=== PATIENT | male | born 1985 | race Two or more races ===

== ENCOUNTER 2018-09-25 17:21 | Emergency (ER) | payer SELFPAY ==
[~2018-09-25] VITALS: Ht 182.9 cm; Wt 77.0 kg
[2018-09-25 18:21] VITALS: BP 124/71; PULSE 100; RESP 18; Ht 182.9 cm; Wt 77.0 kg
[2018-09-25] MEDS ORDERED: ACETAMINOPHEN 500 MG TAB PO STA (21:13)
[2018-09-25] MEDS ORDERED: KETOROLAC 60 MG INJ IM STA (21:13)
[2018-09-25] MEDS ORDERED: KETOROLAC 30 MG INJ IV STA (21:17)
[2018-09-25] MEDS ORDERED: ONDANSETRON 4 MG INJ IV STA (21:17)
[2018-09-25] MEDS ORDERED: SOD CHLORIDE 0.9% 1,000 ML IV ONE (21:30)
[2018-09-25] MEDS ORDERED: traMADol 50 MG TAB PO ONE (21:30)
[2018-09-25] MEDS ORDERED: CEFTRIAXONE 1 GM/50 ML (PMX) 50 ML IVPB ONE (21:30)
[2018-09-25] MEDS ORDERED: DIC250 PO (22:29)
[2018-09-25] MEDS ORDERED: morphine 4 MG/ML VIAL IM STA (22:35)
[2018-09-25] MEDS ORDERED: DICL50TA11 PO (22:38)
[2018-09-25] MEDS ORDERED: SULF1TAB31 PO (22:38)
[2018-09-25] MEDS ORDERED: ACET500C5 PO (22:38)
[2018-09-25] MEDS ORDERED: TRIMETHOPRIM/SULFAMETHOX (DS) TAB PO ONE (23:00)
--- NOTE | 2018-09-26 00:29 | ERD ---
ER Documentation Chief Complaint Chief Complaint L elbow pain/swelling X 2 days, no trauma HPI History of Present Illness: 32-year-old male who denies past medical history coming in today with complaint of left elbow pain and swelling is been present for 2 days. Patient denies trauma. Patient reports history of bursitis but reports that his symptoms of intermittent severe with feelings of fatigue and chills and "feverish". 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 At home pharmacological/nonpharmacological treatment for symptoms: Denies Denies social concerns; Denies recent foreign travel ROS All systems reviewed and are negative except as per history of present illness. Medications Home Meds Active Scripts Acetaminophen* (Tylophen*) 500 Mg Capsule, 2 CAP PO Q6 PRN for PAIN AND OR ELEVATED TEMP, #20 CAP Prov:STACY PETER V BATTERY HAND 09/25/18 Diclofenac Sodium* (Diclofenac Sodium*) 50 Mg Tablet.dr, 50 MG PO TID for SWELLING/INFLAMMATION/PAIN, #30 TAB Prov:STACY PETER V BATTERY HAND 09/25/18 Sulfamethoxazole/Trimethoprim* (Bactrim Ds* Tablet) 1 Each Tablet, 1 TAB PO BID for BURSA INFECTION for 14 Days, #28 TAB Prov:STACY PETER V BATTERY HAND 09/25/18 Dicloxacillin Sodium* (Dynapen*) 250 Mg Cap, 500 MG PO QID for INFECTED BURSA for 14 Days, CAP Prov:STACY PETER V BATTERY HAND 09/25/18 Allergies Allergies: Coded Allergies: No Known Allergy (Unverified , 09/25/18) PMhx/Soc Medical and Surgical Hx: pt denies Medical Hx, pt denies Surgical Hx History of Surgery: No Hx Neurological Disorder: No Hx Respiratory Disorders: No Hx Cardiac Disorders: No Hx Psychiatric Problems: No Hx Miscellaneous Medical Probl: No Hx Alcohol Use: Yes (Occasionally) Hx Substance Use: No (Denies) Hx Tobacco Use: No (denies) Smoking Status: Never smoker FmHx Family History: No diabetes, No coronary disease Physical Exam Vitals Vital Signs Date Temp Pulse Resp B/P (MAP) Pulse Ox O2 O2 Flow FiO2 Time Delivery Rate 09/25/18 100.9 100 18 124/71 98 18:21 (88) Physical Exam Const: No acute distress Head: Atraumatic Eyes: Normal Conjunctiva ENT: Normal External Ears, Nose and Mouth. Neck: Full range of motion. No meningismus. Resp: Clear to auscultation bilaterally Cardio: Regular rate and rhythm, no murmurs Abd: Soft, non tender, non distended. Normal bowel sounds Skin: No petechiae or rashes Back: No midline or flank tenderness Ext: No cyanosis; swelling, erythema, warmth noted to left elbow, no fluctuance, positive tenderness to palpation Neur: Awake and alert Psych: Normal Mood and Affect Results 24 hrs Current Medications Medications Dose Sig/Shad Start Time Status Last (Trade) Ordered Route PRN Stop Time Admin Dose Reason Admin Ketorolac 60 mg ONCE STAT 09/25/18 DC Tromethamine IM 21:13 09/25/18 (Toradol) 21:19 Tramadol 50 mg ONCE ONCE 09/25/18 DC 09/25/18 HCl PO 21:30 09/25/18 21:44 (Ultram) 21:31 1,000 mg ONCE STAT 09/25/18 DC 09/25/18 Acetaminophen PO 21:13 09/25/18 21:43 (Tylenol 21:16 Tab) Sodium 1,000 ml @ Q1H ONCE 09/25/18 DC 09/25/18 Chloride 1,000 mls/hr IV 21:30 09/25/18 21:42 22:29 Ceftriaxone 50 ml @ ONCE ONCE 09/25/18 DC 09/25/18 Sodium 100 mls/hr IVPB 21:30 09/25/18 21:42 21:59 Ketorolac 30 mg ONCE STAT 09/25/18 DC 09/25/18 Tromethamine IV 21:17 09/25/18 21:42 (Toradol) 21:19 Ondansetron 4 mg ONCE STAT 09/25/18 DC 09/25/18 HCl (Zofran IV 21:17 09/25/18 21:42 Inj) 21:19 Morphine 4 mg ONCE STAT 09/25/18 DC Sulfate IM 22:35 09/25/18 (morphine) 22:36 1 tab ONCE ONCE 09/25/18 DC 09/25/18 Trimethoprim/ PO 23:00 09/25/18 22:52 23:01 Sulfamethoxaz ole (Bactrim (Ds)) Procedures/MDM ED course includes a thorough examination and history. Medications: IV NS, ceftriaxone, ketorolac, acetaminophen, tramadol Imaging: Left forearm and elbow x-ray Labs: Low suspicion for life-threatening medical emergency. Low suspicion for infectious emergency that requires hospitalization or immediate surgical intervention. Otherwise healthy patient presenting with constellation of symptoms likely r epresenting infected bursa as characterized by history, physical exam finding, radiology findings. Elbow results showing: IMPRESSION: There is likely a chronic fracture of the radial head. Extensive dorsal soft tissue swelling and would clinically correlate for bursitis. RPTAT:[facility] Physician Mateusz Date Time Electronically viewed and signed by Physician Mateusz on 09/25/2018 22:18 Forearm results showing: IMPRESSION: Extensive proximal forearm soft tissue swelling. Degenerative changes of the elbow joint. RPTAT:[facility] Physician Mateusz Date Time Electronically viewed and signed by Physician Mateusz on 09/25/2018 22:20 Dr. Dockery to bedside to evaluate patient: Denies needing of aspiration of bursa for infection. Reports that plan of care for outpatient antibiotics is appropriate. Dr. Dockery agrees with plan of care. Patient reassessment: Patient refusing vital signs are unable to determine if he is fully hemodynamically stable.patient is well-perfused. Patient is no longer tachycardic with palpation of pulse. Patient verbalizes understanding of instructions that this infection could become life-threatening. Patient verbalizes understanding that he will need to take antibiotics as ordered. Patient did get a little hostile with the nurses and said inappropriate things. No respiratory distress, otherwise relatively well appearing and nontoxic. Disposition given. Patient educated on diagnoses, prescriptions, follow-up care, return precautions. Strict return precautions given for worsening condition; questions answered discharge. Disposition for discharge with followup in 2 days with PCP/clinic. Departure Diagnosis: Primary Impression: Infection of bursa Additional Impression: Elbow pain Laterality: left Qualified Codes: M25.522 - Pain in left elbow Condition: Stable Patient Instructions: Bursitis, Elbow (Olecranon) Referrals: [facility] YOU HAVE RECEIVED A MEDICAL SCREENING EXAM AND THE RESULTS INDICATE THAT YOU DO NOT HAVE A CONDITION THAT REQUIRES URGENT TREATMENT IN THE EMERGENCY DEPARTMENT. FURTHER EVALUATION AND TREATMENT OF YOUR CONDITION CAN WAIT UNTIL YOU ARE SEEN IN YOUR DOCTORS OFFICE WITHIN THE NEXT 1-2 DAYS. IT IS YOUR RESPONSIBILITY TO MAKE AN APPOINTMENT FOR FOLOW-UP CARE. IF YOU HAVE A PRIMARY DOCTOR --you should call your primary doctor and schedule an appointment IF YOU DO NOT HAVE A PRIMARY DOCTOR YOU CAN CALL OUR PHYSICIAN REFERRAL HOTLINE AT IF YOU CAN NOT AFFORD TO SEE A PHYSICIAN YOU CAN CHOSE FROM THE FOLLOWING [facility] [address] [facility] [facility] [address] [facility] [facility] [address] [facility] [address] [facility] [address] [facility]. [facility] [address] [facility]. [facility] YOU HAVE RECEIVED A MEDICAL SCREENING EXAM AND THE RESULTS INDICATE THAT YOU DO NOT HAVE A CONDITION THAT REQUIRES URGENT TREATMENT IN THE EMERGENCY DEPARTMENT. FURTHER EVALUATION AND TREATMENT OF YOUR CONDITION CAN WAIT UNTIL YOU ARE SEEN IN YOUR DOCTORS OFFICE WITHIN THE NEXT 1-2 DAYS. IT IS YOUR RESPONSIBILITY TO MAKE AN APPOINTMENT FOR FOLOW-UP CARE. IF YOU HAVE A PRIMARY DOCTOR --you should call your primary doctor and schedule and appointment IF YOU DO NOT HAVE A PRIMARY DOCTOR YOU CAN CALL OUR PHYSICIAN REFERRAL HOTLINE AT . IF YOU CAN NOT AFFORD TO SEE A PHYSICIAN YOU CAN CHOSE FROM THE FOLLOWING [facility]UTIONS: [facility] [address] [place] [address] [facility] [address] [place] [address] [facility] [address] [place] [address] Additional Instructions: Thank you very much for allowing us to participate in your care. Your health and safety is our top priority at [facility]. It is important to read all discharge instructions and education provided in your discharge packet. *Is very important take antibiotics as prescribed. This can become a life-t hreatening infection if you do not take the antibiotics as prescribed. If you feel that your arm is getting worse, do not hesitate to come back to emergency room immediately* Call your primary care doctor TOMORROW for an appointment during the next 2-4 d ays and bring all the information and medications prescribed. Have prescriptions filled and follow precisely the directions on the label. If the symptoms get worse and your provider is unavailable, return to the Emergency Department immediately. STACY PETER NP September 26, 2018 00:29
== END 2018-09-25 23:39 | disposition home or self-care (01) ==
LOC: EDSEX 17:21 → FTE 17:21
DX: M71.122 Other infective bursitis, left elbow (principal)
CPT/HCPCS: 73080; 73090; 96374; 96375; 99284; J0696; J1885; J2405; J7030